=== PATIENT | male | born 1950 | race Caucasian/White ===

== ENCOUNTER 2019-05-24 04:36 | Observation (INO) ==
[2019-05-24 06:16] LABS: Basophils % 0.6 %; Eosinophils # 0.2 K/mcL (0.0-0.6); Eosinophils % 3.5 %; Hematocrit 50.2 % (37.5-50.1); Hemoglobin 16.1 g/dL (12.9-16.9); Immature Granulocytes % 1.4 % (0-4); Lymphocytes # 1.1 K/mcL (0.6-4.6); Lymphocytes % 18.3 %; Mean Corpuscular HGB Conc 32.1 g/dL (31.6-35.5); Mean Corpuscular Hemoglobin 31.1 pg (28.0-33.3); Mean Corpuscular Volume 97.1 fL (83.0-100.0); Mean Platelet Volume 9.7 fL (9.4-12.4); Monocytes # 0.8 K/mcL (0.0-1.3); Monocytes % 12.2 %; Platelet Count 128 K/mcL (140-400); Red Blood Count 5.17 M/mcL (4.19-5.50); Red Cell Distribution Width 13.3 % (11.5-14.5); White Blood Count 6.2 K/mcL (4.3-11.1)
[2019-05-24 06:24] LABS: Prothrombin Time 11.6 Seconds (9.4-12.1)
[2019-05-24 06:27] LABS: Activated Partial Thrombo Time 32.2 Seconds (26.0-36.0)
[2019-05-24 06:44] LABS: BUN/Creatinine Ratio 30 (6-26); Blood Urea Nitrogen 27 mg/dL (8-23); Calcium 9.4 mg/dL (8.6-10.3); Carbon Dioxide 28 mEq/L (23-29); Chloride 100 mEq/L (98-107); Glucose 129 mg/dL (70-105); Osmolality,Calculated 293 (280-300); Potassium 4.5 mEq/L (3.5-5.1); Sodium 138 mEq/L (136-145); Troponin I < 0.03 ng/mL (< 0.04); eGFR For African Americans > 60 (> 60); eGFR For Non-African Americans > 60 (> 60)
[2019-05-24] MEDS ORDERED: Isovue-370 500 ML BOTTLE IVP ONE (07:11)
[2019-05-24] MEDS ORDERED: Aspirin 325 MG TABLET PO ONE (08:49)
[2019-05-24] MEDS ORDERED: Ipratropium/Albuterol Neb 3 ML IH ONE (08:51)
[2019-05-24] MEDS ORDERED: Albuterol 2.5 MG/3 ML NEBULIZER IH PRN (11:59)
[2019-05-24] MEDS ORDERED: Nitroglycerin 0.4 MG TAB.SUBL SL PRN (12:02)
[2019-05-24] MEDS: predniSONE 20 MG TABLET PO SCH (13:44)
[2019-05-24] MEDS: Azithromycin 250 MG TABLET PO SCH (13:45)
[2019-05-24] MEDS: Ipratropium/Albuterol Neb 3 ML IH SCH ×4 (14:23→23:33)
[2019-05-25] MEDS: Ipratropium/Albuterol Neb 3 ML IH SCH ×3 (03:37→11:58)
[2019-05-25 06:31] LABS: Hemoglobin 16.2 g/dL (12.9-16.9); Mean Corpuscular HGB Conc 32.4 g/dL (31.6-35.5); Mean Corpuscular Hemoglobin 30.7 pg (28.0-33.3); Mean Corpuscular Volume 94.9 fL (83.0-100.0); Mean Platelet Volume 9.7 fL (9.4-12.4); Platelet Count 128 K/mcL (140-400); Red Blood Count 5.27 M/mcL (4.19-5.50); Red Cell Distribution Width 13.3 % (11.5-14.5); White Blood Count 5.6 K/mcL (4.3-11.1)
[2019-05-25 06:42] LABS: Prothrombin Time 11.5 Seconds (9.4-12.1)
[2019-05-25 06:56] LABS: BUN/Creatinine Ratio 31 (6-26); Blood Urea Nitrogen 32 mg/dL (8-23); Carbon Dioxide 28 mEq/L (23-29); Chloride 104 mEq/L (98-107); Glucose 132 mg/dL (70-105); Osmolality,Calculated 297 (280-300); Potassium 4.4 mEq/L (3.5-5.1); Sodium 139 mEq/L (136-145); eGFR For African Americans > 60 (> 60); eGFR For Non-African Americans > 60 (> 60)
[2019-05-25] MEDS: predniSONE 20 MG TABLET PO SCH (08:17)
[2019-05-25] MEDS: Azithromycin 250 MG TABLET PO SCH (08:17)
[2019-05-25] MEDS ORDERED: Aspirin 81 MG TAB.CHEW PO SCH (09:00)
[2019-05-25 11:16] VITALS: BP 114/72
== END 2019-05-25 13:08 ==
LOC: 3BNU 04:36 → EMEROOARM 04:36 → SUATTDRO 11:08 → 3BNU 11:27
PROVIDERS: ADMIT Family Medicine; ATTEND Internal Medicine